=== PATIENT | female | born 1960 | race Caucasian/White ===

== ENCOUNTER → 2023-06-24 | Outpatient (CLI) | payer SELFPAY ==
[2023-06-24 14:22] VITALS: PULSE 100; PULSE 106; PULSE 108; PULSE 109; PULSE 110; PULSE 84; PULSE 93; O2SAT 82; O2SAT 85; O2SAT 86; O2SAT 90; O2SAT 91; O2SAT 92; O2SAT 93
--- NOTE | 2023-06-24 14:28 | CPS ---
PATIENT ARRIVED FOR TESTING ON 4LPM DEMAND FLOW OXYGEN. PLACED BRIEFLY ON ROOM AIR PRIOR TO START OF WALK TEST. PATIENT WAS SOB AND LIPS WERE DUSKY WITH SPO2 FALLING QUICKLY TO 82%, ULTIMATELY REQUIRING 3LPM TO MAINTAIN SPO2 ABOVE 88% AT REST. WALK BEGAN ON 3LPM. SHORT REST BREAKS TAKEN EACH MINUTE FOR INCREASED WOB, WITH PT EXPERIENCING DIZZINESS WELL AT 3 MIN. SPO2 WAS 85% ON 4LPM AT THAT TIME. INCREASED TO 6LPM CONTINUOUS FLOW, WHICH SHE REMAINED ON FOR DURATION OF TESTING.
--- NOTE | 2023-06-25 05:49 | WT_ITS ---
PSN 6 Minute Walk Test 6 Minute Walk Test 6 Minute Walk Test: 6 Minute Walk Test PSN:6-Minute Walk Test Start: 06/24/23 14:22 Freq: Status: Active Protocol: [id number] Document 06/24/23 14:22 [facility] (Rec: 06/24/23 14:33 [facility] [id number]) 6 Minute Walk Test Date Performed 06/24/23 Time Performed 12:30 Height 5 ft 5 in Weight: 124.284 kg Weight in Pounds 274.[address]: Pawan Euceda Assistive device used: None Pre-test Oxygen Delivery Method Room Air Pulse Ox 82 Pulse Rate (60-100) 100 Dyspnea Lewis Scale (0-10) 3 Reported Symptoms Cyanotic,Increased Work of Breathing 1st minute Oxygen Flow Rate (L/min) 3 Oxygen Delivery Method Nasal Cannula Pulse Ox 93 Pulse Rate (60-100) 84 Dyspnea Lewis Scale (0-10) 3 Number of Rests Taken 0 Reported Symptoms Increased Work of Breathing 2nd minute Oxygen Flow Rate (L/min) 3 Oxygen Delivery Method Nasal Cannula Pulse Ox 86 Pulse Rate (60-100) 106 H Dyspnea Lewis Scale (0-10) 3 Number of Rests Taken 1 Reported Symptoms Cyanotic,Increased Work of Breathing 3rd minute Oxygen Flow Rate (L/min) 4 Oxygen Delivery Method Nasal Cannula Pulse Ox 85 Pulse Rate (60-100) 109 H Dyspnea Lewis Scale (0-10) 3 Number of Rests Taken 1 Reported Symptoms Cyanotic,Increased Work of Breathing,Dizziness 4th minute Oxygen Flow Rate (L/min) 6 Oxygen Delivery Method Nasal Cannula Pulse Ox 91 Pulse Rate (60-100) 108 H Dyspnea Lewis Scale (0-10) 3 Number of Rests Taken 1 Reported Symptoms Increased Work of Breathing 5th minute Oxygen Flow Rate (L/min) 6 Oxygen Delivery Method Nasal Cannula Pulse Ox 90 Pulse Rate (60-100) 109 H Dyspnea Lewis Scale (0-10) 3 Number of Rests Taken 1 Reported Symptoms Increased Work of Breathing 6th minute Oxygen Flow Rate (L/min) 6 Oxygen Delivery Method Nasal Cannula Pulse Ox 92 Pulse Rate (60-100) 110 H Dyspnea Lewis Scale (0-10) 3 Number of Rests Taken 0 Reported Symptoms Increased Work of Breathing Post-test Oxygen Flow Rate (L/min) 3 Oxygen Delivery Method Nasal Cannula Pulse Ox 93 Pulse Rate (60-100) 93 Dyspnea Lewis Scale (0-10) 1 Full Laps Walked 3 Partial Lap, Number of Tiles Walked 23 Total Distance Walked (ft) 200 06/24/23 14:28 Cardiopulmonary Services by Michelle Hale PATIENT ARRIVED FOR TESTING ON 4LPM DEMAND FLOW OXYGEN. PLACED BRIEFLY ON ROOM AIR PRIOR TO START OF WALK TEST. PATIENT WAS SOB AND LIPS WERE DUSKY WITH SPO2 FALLING QUICKLY TO 82%, ULTIMATELY REQUIRING 3LPM TO MAINTAIN SPO2 ABOVE 88% AT REST. WALK BEGAN ON 3LPM. SHORT REST BREAKS TAKEN EACH MINUTE FOR INCREASED WOB, WITH PT EXPERIENCING DIZZINESS WELL AT 3 MIN. SPO2 WAS 85% ON 4LPM AT THAT TIME. INCREASED TO 6LPM CONTINUOUS FLOW, WHICH SHE REMAINED ON FOR DURATION OF TESTING. Initialized on 06/24/23 14:28 - END OF NOTE Interpretation Interpretation: The patient was noted to be 82% on room air at rest. The patient was then pl aced on 3 L nasal cannula with improvement to 93%. The patient then attempted ambulation and was able to maintain saturations on 6 L/min. Patient did have a significant component of reflexive tachycardia with a peak heart rate of 110 bpm. In total, the patient traveled only 200 feet over the course of 6 minutes with no assistive devices and 5 breaks. These findings are consistent with a respiratory limitation exercise tolerance. Recommendations Recommendations: The patient requires 3 L nasal cannula at rest, but should be increased to 6 L/min with any ambulation
== END | disposition home or self-care (01) ==
PROVIDERS: PCP Family Medicine; Referring Provider Internal Medicine Critical Care Medicine; Visit Provider Internal Medicine Critical Care Medicine
DX: J96.11 Chronic respiratory failure with hypoxia (principal)
CPT/HCPCS: 94618